=== PATIENT | female | born 1955 | race Caucasian/White ===

== ENCOUNTER → 2017-08-08 | Outpatient (CLI) | payer OTHER ==
[~2017-08-08] MED LIST: ATOR10TA82 PO; B-COCAP2 PO; CALCIUM/MAGNESIUM PO; CLR10 PO; MULT-513 PO; NXM/40 PO; OMEG10007 PO; VITA400C15 PO
--- NOTE | 2017-08-08 09:50 | DIAGNOSTIC IMAGING REPORT ---
KUB HISTORY: LEFT URETERAL STONE COMPARISON: None. FINDINGS: The bowel gas pattern is unremarkable. There are no dilated loops of small bowel to suggest an obstruction. No renal calculi identified. Cholecystectomy. There are 2 round calcifications within the left deep pelvis and a single round calcification within the midline of the deep pelvis. These are nonspecific but favor phleboliths. No definite ureteral calculi. No pneumoperitoneum or pneumatosis. IMPRESSION: 1. No renal or definite ureteral calculi identified. 2. Round calcifications within the left deep pelvis are nonspecific but favor phleboliths. Electronically signed by: Abdifatah Ayon M.D. 08/08/2017 9:49 AM Dictated Date/Time: 08/08/2017 9:46 AM
== END | disposition home or self-care (01) ==
LOC: C.RAD1850 09:33
PROVIDERS: ATTEND Urology
DX: N20.1 Calculus of ureter (principal)

== ENCOUNTER → 2017-09-22 | Outpatient (CLI) | payer OTHER ==
[~2017-09-22] MED LIST changes: +OPTIRAY 300 IV PRN
--- NOTE | 2017-09-22 14:16 | DIAGNOSTIC IMAGING REPORT ---
IVP W/OR W/O TOMOGRAMS CLINICAL HISTORY: 62 years-old Female presenting with STONES. TECHNIQUE: An abdominal scooping machine tender radiograph is performed. IVP pyelogram was then performed following the IV administration of 100 mL of Optiray 300, tomographic images are acquired in the corticomedullary and excretory phases of enhancement. Overhead views of the renal collecting system and bladder were obtained in multiple obliquities both pre and post void. COMPARISON: 08/08/2017. FINDINGS: Cholecystectomy clips noted. Mild stool burden. No radiographically apparent renal or ureteral calculi. Stable distribution of pelvic phleboliths. Postcontrast imaging demonstrates normal excretion from the bilateral kidneys and normal opacification of the ureters. No filling defect in the urinary collecting systems or evidence of stenosis in the ureters. No hydronephrosis. Post void imaging demonstrates an complete bladder emptying. IMPRESSION: 1. No radiographic with apparent renal or ureteral calculi. 2. No hydronephrosis. 3. No evidence of a urothelial mass. 4. Incomplete bladder emptying on postvoid imaging. Electronically signed by: Austen Crocker M.D. 09/22/2017 2:14 PM Dictated Date/Time: 09/22/2017 2:11 PM
== END | disposition home or self-care (01) ==
LOC: C.RAD 12:39
PROVIDERS: ATTEND Urology
DX: N20.1 Calculus of ureter (principal); R33.9 Retention of urine, unspecified